=== PATIENT | male | born 1975 | race Caucasian/White ===

== ENCOUNTER 2019-04-28 15:27 | Emergency (ER) | payer OTHER ==
[~2019-04-28] VITALS: Ht 193 cm; Wt 89.5 kg
[~2019-04-28 15:27] MED LIST: CEPH500C5 PO; CYCL-1 PO; IBUP-1985 PO; SULF1TAB49 PO
[2019-04-28 15:38] VITALS: BP 159/90
== END 2019-04-28 16:05 | disposition home or self-care (01) ==
LOC: ER 15:27
DX: Z00.00 Encounter for general adult medical examination without abnormal findings (principal); G89.29 Other chronic pain; F10.99 Alcohol use, unspecified with unspecified alcohol-induced disorder; Z86.69 Personal history of other diseases of the nervous system and sense organs; Z79.899 Other long term (current) drug therapy; Y90.9 Presence of alcohol in blood, level not specified
CPT/HCPCS: 99281

== ENCOUNTER 2020-02-10 11:56 | Emergency (ER) | payer OTHER ==
[~2020-02-10] VITALS: Ht 193 cm; Wt 100.0 kg
[~2020-02-10 11:56] MED LIST changes: -SULF1TAB49 PO
--- NOTE | 2020-02-10 13:29 | NUR ---
pt called named andrea Pena [phone] worried about the pt informed that will update her for the poc.pt verbalized understanding.will notified the primary nurse to talk to .
[2020-02-10] MEDS ORDERED: AZIT500T9 PO (13:41)
[2020-02-10 14:07] VITALS: BP 124/84
--- NOTE | 2020-02-10 15:38 | NUR ---
Pateients called and request that pts RX be called in as they are quarentined. This was called to josie at their request. Instructions on being quarentiined again provided over phone. Patient will use drive through pharamacy and wear a mask.
== END 2020-02-10 14:10 | disposition home or self-care (01) ==
LOC: ER 11:56
DX: J02.8 Acute pharyngitis due to other specified organisms (principal); B97.89 Other viral agents as the cause of diseases classified elsewhere; G89.29 Other chronic pain; Z20.828 Contact with and (suspected) exposure to other viral communicable diseases; Z86.69 Personal history of other diseases of the nervous system and sense organs; Z72.89 Other problems related to lifestyle; Z79.899 Other long term (current) drug therapy
CPT/HCPCS: 71045; 99283

== ENCOUNTER 2020-08-29 15:10 | Emergency (ER) | payer MEDICAID, OTHER ==
[~2020-08-29] VITALS: Ht 193 cm; Wt 100.0 kg
[~2020-08-29 15:10] MED LIST changes: +AZIT500T9 PO; -CEPH500C5 PO
[2020-08-29 15:43] VITALS: BP 125/84
[2020-08-29] MEDS ORDERED: ketorolac tromethamine 15mg/ml inj. IM ONE (16:35)
[2020-08-29] MEDS ORDERED: cyclobenzaprine 10mg tablet PO ONE (16:35)
[2020-08-29] MEDS ORDERED: IBUP-1984 PO (16:36)
[2020-08-29] MEDS ORDERED: ORPH100T2 PO (16:36)
== END 2020-08-29 16:58 | disposition home or self-care (01) ==
LOC: ER 15:17
DX: G89.29 Other chronic pain (principal); M54.31 Sciatica, right side; Z86.69 Personal history of other diseases of the nervous system and sense organs; Z72.89 Other problems related to lifestyle; Z79.2 Long term (current) use of antibiotics; Z79.899 Other long term (current) drug therapy
CPT/HCPCS: 96372; 99283; J1885

== ENCOUNTER 2020-09-17 15:12 | Emergency (ER) | payer MEDICAID ==
[~2020-09-17 15:12] MED LIST changes: +ORPH100T2 PO
[2020-09-17] MEDS ORDERED: orphenadrine citrate 60mg/2ml inj. IM ONE (15:30)
[2020-09-17] MEDS ORDERED: oxyCODONE/APAP 10/325mg tablet PO ONE (15:30)
[2020-09-17] MEDS ORDERED: ketorolac trometh inj. 60 MG/2 ML VIAL IM ONE (15:30)
[2020-09-17] MEDS ORDERED: NAPR-56 PO (15:43)
[2020-09-17] MEDS ORDERED: ORPH100T2 PO (15:43)
[2020-09-17 16:37] VITALS: BP 130/73
== END 2020-09-17 16:40 | disposition home or self-care (01) ==
LOC: ER 15:16
DX: G89.29 Other chronic pain (principal); M54.41 Lumbago with sciatica, right side; Z72.89 Other problems related to lifestyle; Z86.61 Personal history of infections of the central nervous system; Z79.2 Long term (current) use of antibiotics; Z79.899 Other long term (current) drug therapy
CPT/HCPCS: 72100; 96372; 99284; J1885; J2360

== ENCOUNTER 2021-12-28 10:39 | Emergency (ER) | payer MEDICAID, OTHER ==
[~2021-12-28] VITALS: Ht 193 cm; Wt 100.0 kg
[2021-12-28 10:47] VITALS: BP 141/96
--- NOTE | 2021-12-28 11:02 | NUR ---
pt to xray
[2021-12-28] MEDS ORDERED: HYDROcodone/acetaminophen 5mg/325mg tablet PO ONE (12:10)
[2021-12-28] MEDS ORDERED: TETanus/Pertussis (Acell)/Diphther VAC/PF (Tdap-Adult) 0.5ml syringe IMVAC ONE (12:10)
[2021-12-28] MEDS ORDERED: CEPH500C2 PO (12:34)
== END 2021-12-28 13:05 | disposition home or self-care (01) ==
LOC: ER 10:40
DX: S61.432A Puncture wound without foreign body of left hand, initial encounter (principal); G89.29 Other chronic pain; M54.9 Dorsalgia, unspecified; Z79.899 Other long term (current) drug therapy; Y24.8XXA Other firearm discharge, undetermined intent, initial encounter; Y93.89 Activity, other specified; Y92.89 Other specified places as the place of occurrence of the external cause; Y99.8 Other external cause status
CPT/HCPCS: 29125; 73130; 90471; 90715; 99283

== ENCOUNTER 2022-04-16 18:49 | Emergency (ER) | payer SELFPAY ==
[~2022-04-16] VITALS: Ht 193 cm; Wt 95.0 kg
[2022-04-16 19:41] LABS: BASOPHILS # (AUTO) 0.1 X10'3 (0-0.2); BASOPHILS % (AUTO) 1.2 % (0-1); EOSINOPHILS % (AUTO) 0.3 % (0-6); HEMATOCRIT 49.2 % (42.0-52.0); HEMOGLOBIN 16.8 g/dl (14.0-17.9); LYMPHOCYTES # (AUTO) 1.7 X10'3 (1.1-4.8); LYMPHOCYTES % (AUTO) 23.8 % (21-51); MEAN CORPUSCULAR HEMOGLOBIN 33.6 PG (27.0-31.0); MEAN CORPUSCULAR HGB CONC 34.1 g/dL (33.0-36.5); MEAN CORPUSCULAR VOLUME 98.4 FL (78-98); MEAN PLATELET VOLUME 8.8 FL (7.4-10.4); MONOCYTES # (AUTO) 0.6 X10'3 (0-0.9); NEUTROPHILS # (AUTO) 4.6 X10'3 (1.8-7.7); NEUTROPHILS % (AUTO) 65.7 % (42-75); RED CELL DISTRIBUTION WIDTH 13.7 % (11.5-14.5)
[2022-04-16] MEDS ORDERED: bisacodyl 5mg tablet.DR PO ONE (19:45)
[2022-04-16 19:55] LABS: ALANINE AMINOTRANSFERASE 191 U/L (12-78); ALBUMIN 4.3 G/DL (3.4-5.0); ALBUMIN/GLOBULIN RATIO 1.1 (1.1-1.5); ALKALINE PHOSPHATASE 103 IU/L (46-116); ANION GAP 16 (8-16); ASPARTATE AMINO TRANSFERASE 344 U/L (10-37); BILIRUBIN,TOTAL 0.7 MG/DL (0.1-1.0); BLOOD UREA NITROGEN 14 MG/DL (7-18); BUN/CREATININE RATIO 20.3 (5.4-32.0); CALCIUM 8.5 MG/DL (8.5-10.1); CHLORIDE 95 MMOL/L (99-107); CREATININE 0.69 MG/DL (0.60-1.10); GLUCOSE 76 MG/DL (70-104); POTASSIUM 3.8 MMOL/L (3.5-5.1); SODIUM 136 MMOL/L (135-145); TOTAL CARBON DIOXIDE 24.9 MMOL/L (24-32); TOTAL PROTEIN 8.3 G/DL (6.4-8.2); eGFR > 90 ML/MIN
[2022-04-16 20:00] LABS: PLATELET COUNT 49 X10'3 (140-440)
[2022-04-16 20:04] LABS: ETHANOL 0.286 GM/DL (0.0-0.010)
[2022-04-16 20:30] VITALS: BP 127/67
== END 2022-04-16 20:32 | disposition home or self-care (01) ==
LOC: ER 18:50
DX: D69.6 Thrombocytopenia, unspecified (principal); F10.920 Alcohol use, unspecified with intoxication, uncomplicated; G89.29 Other chronic pain; M54.9 Dorsalgia, unspecified; Z79.899 Other long term (current) drug therapy
CPT/HCPCS: 36415; 71045; 80053; 80320; 83880; 84484; 85025; 93005; 99285